=== PATIENT | male | born 1965 | race Caucasian/White ===

== ENCOUNTER 2020-03-24 07:24 | Emergency (ER) | payer SELFPAY ==
[2020-03-24] MEDS ORDERED: KETOROLAC TROMETHAMINE 60 MG/2 ML SDV IM ONE (08:13)
--- NOTE | 2020-03-24 08:21 | ER Document Report ---
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 Patient was pushing a car onto a trailer when he suddenly felt a pop and severe burning pain in the right calf area. He has been unable to bear weight since then. Patient took 2 BC tablets prior to arrival here. Minimal relief of his discomfort which is presently described as 5/10 intensity. He notes that he had a broken bone in this extremity requiring surgery many years ago. He otherwise denies prior problems with the extremity. He is on no regular medications and denies any long-term medical problems that he is aware of. He is not taking aspirin or any type of anticoagulation. 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 Lives with: Family Family History: Reviewed & Not Pertinent Patient has suicidal ideation: No Patient has homicidal ideation: No - Past Medical History Cardiac Medical History: Reports: None Pulmonary Medical History: Reports: None Neurological Medical History: Reports: None Endocrine Medical History: Reports: None Renal/ Medical History: Reports: None GI Medical History: Reports: None Musculoskeletal Medical History: Reports Hx Musculoskeletal Trauma - Fractures right lower extremity in past requiring surgery Traumatic Medical History: Reports: Hx Fractures Past Surgical History: Reports: Hx Appendectomy, Hx Orthopedic Surgery - right ankle and footComment Only: Hx Abdominal Surgery - hernia Review of Systems - Review of Systems Notes: Constitutional: Negative for fever. HENT: Negative for sore throat. Eyes: Negative for visual changes. Cardiovascular: Negative for chest pain. Respiratory: Negative for shortness of breath. Gastrointestinal: Negative for abdominal pain, vomiting or diarrhea. Genitourinary: Negative for dysuria. Musculoskeletal: As per HPI. Skin: Negative for rash. Neurological: Negative for headaches, weakness or numbness. 10 point ROS negative except as marked above and in HPI. Physical Exam - Vital signs Vitals: Temp Pulse Resp BP Pulse Ox 97.8 F 91 16 194/109 H 97 03/24/20 07:30 03/24/20 07:30 03/24/20 07:30 03/24/20 07:30 03/24/20 07:30 - Notes Notes: GENERAL: Mildly obese male approximately stated age appearing in moderate pain. SKIN: Good turgor no rashes. HEAD: Normocephalic atraumatic. EYES: PERRLA. EOMI. Conjunctivae and sclerae clear. NECK: Supple. No masses or thyromegaly. No adenopathy. Carotids 2+ without bruits. No JVD. BACK: Symmetrical without tenderness. CHEST: Respirations unlabored. Breath sounds clear and symmetrical. HEART: Regular rhythm. No murmur gallop or rub. ABDOMEN: Soft nontender without masses, organomegaly or rebound. Bowel sounds normally active. No bruits. EXTREMITIES: Prominent swelling right calf area with exquisite tenderness. No bony deformities appreciated. There is no tenderness over the Achilles tendon or palpable defect. Cap refill less than 1.5 seconds. Dorsalis pedis and posterior tibial pulses 3+ and symmetrical. NEUROLOGICAL: Alert and oriented x3. Nonfocal. PSYCHIATRIC: Appropriate affect. Course - Re-evaluation Re-evalutation: 03/24/20 11:16 Patient initially treated with ice pack and IM Toradol. Pain control was insufficient. He was subsequently given IM morphine. Ultrasound showed no evidence of a Gil's cyst or DVT. His plain films showed hardware in situ with no new displacement or bony injury. Findings are discussed with orthopedist consumer safety officer Dr. Wilkerson. We both feel it is likely that he has torn through the muscle belly of the soleus. I will place him in a posterior splint and given crutches along with ice and elevation. He will follow-up in the office with Dr. Wilkerson. Findings and recommendations have been discussed with patient and he fully understands these. - Vital Signs Vital signs: Temp Pulse Resp BP Pulse Ox 97.8 F 91 16 194/109 H 97 03/24/20 07:54 03/24/20 07:30 03/24/20 07:30 03/24/20 07:30 03/24/20 07:30 - Diagnostic Test Radiology reviewed: Reports reviewed - Lower extremity ultrasound per radiologist negative for DVT or Gil's cyst. Discharge - Discharge Clinical Impression: Muscle tear soleus/gastrocnemius right l Condition: Stable Disposition: HOME, SELF-CARE Additional Instructions: Ice, elevation and use splint and crutches as directed. Take pain medication as needed. Follow-up with referral orthopedist. Prescriptions: Oxycodone HCl/Acetaminophen [Percocet 5-325 mg Tablet] 1 - 2 tab PO Q4H PRN #15 tablet PRN Reason: Ondansetron [Zofran Odt 4 mg Tablet] 1 - 2 tab PO Q4H PRN #15 tab.rapdis PRN Reason: For Nausea/Vomiting Referrals: JOSSY WILKERSON DO [NO LOCAL MD] - Follow up as needed FRANCISCO WILKERSON MD [ACTIVE PROVISIONAL STAFF] - Follow up as needed
--- NOTE | 2020-03-24 08:57 | RADIOLOGY REPORT (SQ) ---
EXAM DESCRIPTION: TIBIA FIBULA RIGHT IMAGES COMPLETED DATE/TIME: 03/24/2020 8:29 am REASON FOR STUDY: injury COMPARISON: None. NUMBER OF VIEWS: Two views. TECHNIQUE: Two radiographic images acquired of the right tibia and fibula to include the knee and an kle in at least one projection. LIMITATIONS: None. FINDINGS: MINERALIZATION: Normal. BONES: There are healed fractures of the distal tibia and fibular shaft status post shashank and screw fix ation. No acute fracture or dislocation. No worrisome bone lesions. SOFT TISSUES: No obvious swelling or foreign body. OTHER: No other significant finding. IMPRESSION: Healed fractures. No acute findings. TECHNICAL DOCUMENTATION: JOB ID: [id number] 2010 [employer]- All Rights Reserved Reading location - IP/workstation name: [email or web address]
[2020-03-24] MEDS ORDERED: ONDANSETRON 4 MG TAB.RAPDIS PO ONE (09:40)
--- NOTE | 2020-03-24 10:34 | RADIOLOGY REPORT (SQ) ---
EXAM DESCRIPTION: VENOUS UNILATERAL LOWER IMAGES COMPLETED DATE/TIME: 03/24/2020 10:16 am REASON FOR STUDY: Injury/swelling right calf COMPARISON: None. TECHNIQUE: Dynamic and static haskins scale and color images acquired of the right leg venous system. S elected spectral images acquired with additional compression and augmentation maneuvers. The contrala teral common femoral vein and saphenofemoral junction were also imaged. Images stored on PACS. LIMITATIONS: Body habitus. FINDINGS: COMMON FEMORAL: Normal phasicity, compression and augmentation. No visualized echogenic ma terial on haskins scale. No defects on color images. FEMORAL: Normal compression and augmentation. No visualized echogenic material on haskins scale. No defe cts on color images. POPLITEAL: Normal compression, augmentation. No visualized echogenic material on haskins scale. No defec ts on color images. CALF VESSELS: Normal compression, augmentation. No visualized echogenic material on haskins scale. No de fects on color images. GSV and SSV: Normal compression, augmentation. No visualized echogenic material on haskins scale. No def ects on color images. ANY DEEP VENOUS INSUFFICIENCY: Not evaluated. ANY EVIDENCE OF POPLITEAL CYST: No. OTHER: No other significant finding. CONTRALATERAL COMMON FEMORAL VEIN AND SAPHENOFEMORAL JUNCTION: Normal phasicity, compression and augmentation. No visualized echogenic material on haskins scale. No de fects on color images. IMPRESSION: NO EVIDENCE DVT OR SVT IN THE RIGHT LEG. TECHNICAL DOCUMENTATION: JOB ID: [id number] 2010 [employer]- All Rights Reserved Reading location - IP/workstation name: [email or web address]
[2020-03-24] MEDS ORDERED: MORPHINE SULFATE 10 MG/ML INJ IM ONE (11:08)
[2020-03-24 11:54] VITALS: BP 178/102
== END 2020-03-24 11:55 | disposition home or self-care (01) ==
LOC: ER 07:24
DX: S86.111A Strain of other muscle(s) and tendon(s) of posterior muscle group at lower leg level, right leg, initial encounter (principal); X50.9XXA Other and unspecified overexertion or strenuous movements or postures, initial encounter
CPT/HCPCS: 99284; 96372; 93971; 73590; J1885; S0119; J2270